=== PATIENT | male | born 1925 | race Caucasian/White ===

== ENCOUNTER 2016-09-26 08:20 | Emergency (ER) | payer OTHER ==
[2016-09-26 08:32] VITALS: BMI 30.4
[2016-09-26 09:28] LABS: INR 1.45 (0.82-1.09); PROTHROMBIN TIME (PATIENT) 16.1 SEC (9.98-11.88)
[2016-09-26 09:36] LABS: BASOPHIL 0.9 % (0-2.0); EOSINOPHIL 4.8 % (0-4.5); MCH 25.9 pg (25.7-33.7); MCHC 33.2 g/dl (32.0-35.9); MEAN CELL VOLUME 78.1 fl (80-96); MEAN PLT VOLUME 8.7 fl (7.5-11.1); NEUTROPHILS 48.9 % (42.8-82.8); PLATELET COUNT 238 K/MM3 (134-434); RDW 16.1 % (11.9-15.9); WHITE BLOOD COUNT 8.1 K/mm3 (4.0-10.0)
--- NOTE | 2016-09-26 09:46 | PDOC ---
History of Present Illness - General Chief Complaint: Nasal Bleeding Stated Complaint: NOSE BLEED Time Seen by Provider: 09/26/16 08:46 History Source: Patient Exam Limitations: No Limitations - History of Present Illness Initial Comments: 09/26/16 09:11 89-year-old male presents with right nasal bleeding intimately since Sunday. Patient states on Sunday seen by ENT specialist Dr. Wilburn , who did cauterize the area and was discharged home with recommendations to use Afrin spray and bacitracin. Patient states was also told to hold his Coumadin on Sunday and Sunday which he takes for A. fib/defibrillator. Patient currently denies any headache, difficulty swallowing, foul taste in mouth, difficulty breathing, or dizziness. Patient states did not manipulate the area including nasal blowing But this morning while eating breakfast the area began to bleed and decided come to the ER. Transfer Timing/Duration: intermittent Severity: mild Associated Symptoms: reports: denies symptoms Past History - Past Medical History Allergies/Adverse Reactions: Allergies Allergy/AdvReac Type Severity Reaction Status Date / Time No Known Drug Allergies Allergy Verified 09/26/16 08:27 Home Medications: Ambulatory Orders Aspirin [ASA -] 81 mg PO DAILY 03/19/15 Atenolol [Tenormin -] 25 mg PO DAILY 03/19/15 Atorvastatin Ca [Lipitor] 20 mg PO HS 03/19/15 Valsartan [Diovan] 160 mg PO DAILY 03/19/15 Warfarin Sodium [Coumadin] 2 mg PO MOSA 03/04/16 Warfarin Sodium [Coumadin] 4 mg PO SUTUWEFR 03/04/16 Amlodipine Besylate [Norvasc -] 5 mg PO DAILY 90 Days 03/07/16 Ezetimibe [Zetia -] 10 mg PO HS 90 Days 03/07/16 Anemia: No Asthma: No Cancer: No Cardiac Disorders: Yes (aortic stent) CVA: No COPD: No CHF: No Dementia: No Diabetes: No GI Disorders: No Disorders: No HTN: Yes Hypercholesterolemia: Yes Liver Disease: No Seizures: No Thyroid Disease: No - Surgical History Abdominal Surgery: Yes (hernia) Appendectomy: No Cardiac Surgery: Yes (aaa stenting pacemaker) Cholecystectomy: No Lung Surgery: No Neurologic Surgery: No Orthopedic Surgery: No - Immunization History Immunization Up to Date: Yes - Psycho/Social/Smoking Cessation Hx Anxiety: No Suicidal Ideation: No Smoking History: Never smoked Have you smoked in the past 12 months: No Number of Cigarettes Smoked Daily: 0 If you are a former smoker, when did you quit?: 40yrs ago Information on smoking cessation initiated: No Hx Alcohol Use: No Drug/Substance Use Hx: No Substance Use Type: None Hx Substance Use Treatment: No Patient Lives Alone: No Lives with/in: spouse/SO Review of Systems - Review of Systems Able to Perform ROS?: Yes Constitutional: No: Symptoms Reported HEENTM: Yes: Nose Bleeding Respiratory: No: Symptoms reported Cardiac (ROS): No: Symptoms Reported ABD/GI: No: Symptoms Reported : No: Symptoms Reported Musculoskeletal: No: Symptoms Reported Integumentary: No: Symptoms Reported Neurological: No: Symptoms reported *Physical Exam - Vital Signs Last Vital Signs Temp Pulse Resp BP Pulse Ox 98.1 F 74 20 153/82 96 09/26/16 08:29 09/26/16 08:29 09/26/16 08:29 09/26/16 08:29 09/26/16 08:29 - Physical Exam General Appearance: Yes: Nourished, Appropriately Dressed. No: Apparent Distress HEENT: positive: EOMI, JAYDON, Pharynx Normal (no blood noted to posterior pharynx ), Other (Noted bright red blood oozing from rt nasal anterior septal wall with small blood clot on cotton ball.). negative: Pale Conjunctivae Neck: positive: Supple Respiratory/Chest: positive: Lungs Clear, Normal Breath Sounds. negative: Respiratory Distress, Accessory Muscle Use Cardiovascular: positive: Regular Rhythm, Regular Rate. negative: Murmur Integumentary: positive: Normal Color, Warm, Moist Neurologic: positive: Motor Strength 5/5 (ambulatory) ED Treatment Course - LABORATORY CBC & Chemistry Diagram: 09/26/16 08:47 - ADDITIONAL ORDERS Additional order review: Laboratory Results 09/26/16 08:47 INR 1.45 H D Medical Decision Making - Medical Decision Making 09/26/16 09:59 Pt with rt nasal epistaxis. Coumadin was held for 3 days including yesterday although he was recommended to hold for 2 days. Minimal bleeding noted from right nare. Pt is currently asymptomatic. Will contact patient's PCP and ENT specialist to discuss plan after results of CBC and PT/INR is resulted. 09/26/16 10:19 Laboratory Tests 09/26/16 09/26/16 08:47 08:47 RBC 5.31 Hgb 13.8 INR 1.45 H D Bleeding has decreased with direct pressure placed to anterior septal wall. Patient is subtherapeutic in regards to his INR. Will contact Dr. Lima and Dr. Parisi 09/26/16 11:[address] Lima who agrees patient needs to follow up with ENT and wants patient to be seen by him after being seen by ENT today. Patient remains comfortable 09/26/16 11:25 Case discussed with biomedical repair technician of Dr. Parisi who states evangelina send patient over to the ED upon discharge. Patient to follow-up with his PCP Dr. Lima following ENT appointment *DC/Admit/Observation/Transfer Diagnosis at time of Disposition: Anterior Epistaxis - Discharge Dispostion Disposition: HOME Condition at time of disposition: Good - Referrals Referrals: Guillermo Kraft MD [Primary Care Provider] - Elijah Parisi MD [Staff Physician] - - Patient Instructions Printed Discharge Instructions: DI for Nosebleed Additional Instructions: Today you're INR was 1.49 and you had a normal H&H and platelet count. Go directly over to ENT specialist and then to Dr. Kraft following an ENT appointment
[2016-09-26 11:40] VITALS: BP 135/80; PULSE 87; TEMP 98.2
== END 2016-09-26 11:40 | disposition home or self-care (01) ==
LOC: JER 08:20
DX: R04.0 Epistaxis (principal); I48.91 Unspecified atrial fibrillation; Z79.01 Long term (current) use of anticoagulants; Z95.5 Presence of coronary angioplasty implant and graft; I10 Essential (primary) hypertension; E78.00 Pure hypercholesterolemia, unspecified; Z95.810 Presence of automatic (implantable) cardiac defibrillator
CPT/HCPCS: 36415; 85025; 85610; 99282-25